=== PATIENT | male | born 1990 ===

== ENCOUNTER 2018-06-29 07:38 | Outpatient (CLI) | payer OTHER ==
[~2018-06-29] VITALS: Ht 182.9 cm; Wt 133.8 kg
[2018-06-29] MEDS ORDERED: FLONASE16 GM NASAL (10:42)
[2018-06-29] MEDS ORDERED: KENALOG-1010 MG/1 ML TOP (10:43)
== END 2018-06-29 08:00 | disposition home or self-care (01) ==
LOC: OFIC 805 07:38
DX: H61.21 Impacted cerumen, right ear (principal); J31.0 Chronic rhinitis; R06.83 Snoring; E66.8 Other obesity; K12.1 Other forms of stomatitis; G47.33 Obstructive sleep apnea (adult) (pediatric)